=== PATIENT | female | born 1975 | race Hispanic/Latino ===

== ENCOUNTER 2021-12-04 18:36 | Emergency (ER) | payer MEDICAID, OTHER ==
[~2021-12-04] VITALS: Ht 165.1 cm; Wt 86.2 kg
[2021-12-04] MEDS ORDERED: DEXAMETHASONE 4 MG TAB PO SCH (19:00)
[2021-12-04] MEDS ORDERED: FAMOTIDINE 20MG VIAL IV ONE (19:00)
[2021-12-04 19:13] LABS: BASOPHILS % (AUTO) 0.4 % (0.0-5.0); EOSINOPHILS % (AUTO) 1.6 % (0.0-8.0); LYMPHOCYTES % (AUTO) 28.5 % (21.0-51.0); MEAN CORPUSCULAR HEMOGLOBIN 30.6 pg (27.0-33.0); MEAN CORPUSCULAR HGB CONC 33.2 g/dL (32.0-36.0); MEAN CORPUSCULAR VOLUME 92.3 fL (79-99); MONOCYTES % (AUTO) 7.9 % (3.0-13.0); NEUTROPHILS % (AUTO) 61.3 % (40.0-77.0); PLATELET COUNT (AUTO) 267 K/uL (130-400); RED BLOOD CELL COUNT(AUTO) 4.44 MIL/uL (4.00-5.50); RED CELL DISTRIBUTION WIDTH 13.2 % (11.0-15.5); WHITE BLOOD COUNT (AUTO) 6.9 K/uL (4.8-10.8)
[2021-12-04 19:54] LABS: ALBUMIN 4.1 g/dL (3.5-5.0); POTASSIUM 3.5 mmol/L (3.5-5.1)
[2021-12-04 20:20] LABS: APPEARANCE,URINE Cloudy (CLEAR); BILIRUBIN,URINE Negative (NEGATIVE); COLOR,URINE Yellow (YELLOW); GLUCOSE, URINE (UA) Negative (NEGATIVE); KETONES,URINE Trace mg/dL (NEGATIVE); LEUKOCYTE ESTERASE ,URINE Trace (NEGATIVE); NITRATE,URINE Positive (NEGATIVE); OCCULT BLOOD,URINE Negative (NEGATIVE); PH,URINE 6.5 (5.0-8.0); PROTEIN,URINE Negative (NEGATIVE)
[2021-12-04 20:30] LABS: BACTERIA,URINE Moderate /HPF (None Seen); MUCUS,URINE Few LPF (None Seen); SQUAMOUS EPITHELIAL CELL,UR Few /HPF (0-2)
[2021-12-04] MEDS ORDERED: PRED20TA3 PO ×2 (20:37→20:59)
[2021-12-04] MEDS ORDERED: FAMC500T8 PO (20:37)
[2021-12-04] MEDS ORDERED: FAMO-136 PO (20:37)
[2021-12-04] MEDS ORDERED: CEPH500B PO (20:37)
[2021-12-04 20:40] LABS: CREATININE 0.6 mg/dL (0.5-1.5)
[2021-12-04] MEDS ORDERED: CEFTRIAXONE 1G VIAL IVP ONE (21:00)
[2021-12-04 21:23] VITALS: BP 118/84
== END 2021-12-04 21:27 | disposition home or self-care (01) ==
LOC: EDH 18:36
DX: G51.0 Bell's palsy (principal); N39.0 Urinary tract infection, site not specified; E66.9 Obesity, unspecified; Z20.822 Contact with and (suspected) exposure to COVID-19; Z90.49 Acquired absence of other specified parts of digestive tract; Z79.899 Other long term (current) drug therapy; Z98.890 Other specified postprocedural states
CPT/HCPCS: 36415; 70450; 71045; 80053; 81001; 81025; 83605; 84484; 85025; 87077; 87088; 87186; 87635; 87804 ×2; 96374; 96375; 99285; C9803; J0696; J8540; S0028; J3490

== ENCOUNTER → 2023-06-27 | Outpatient (CLI) | payer MEDICAID ==
[~2023-06-27] MED LIST: CEPH500B PO; FAMC500T8 PO; FAMO-136 PO; PRED20TA3 PO
== END | disposition home or self-care (01) ==
LOC: RAH 10:53
PROVIDERS: ATTEND Family Medicine
DX: E04.1 Nontoxic single thyroid nodule (principal); E04.9 Nontoxic goiter, unspecified; R13.10 Dysphagia, unspecified; M62.89 Other specified disorders of muscle; R20.2 Paresthesia of skin
CPT/HCPCS: 76536

== ENCOUNTER 2025-06-12 19:43 | Emergency (ER) | payer SELFPAY ==
[~2025-06-12] VITALS: Ht 165.1 cm; Wt 96.2 kg
[2025-06-12 19:46] VITALS: BP 136/82; PULSE 87; RESP 20; TEMP 98.3
--- NOTE | 2025-06-12 19:53 | ERN ---
ED Note History of Present Illness Stated Complaint: C/O CP, JAW PAIN, LEFT SHOULDER PAIN, LT ARM WEAKN Chief Complaint: Chest Pain Time Seen by MD: 19:47 Dictation: IS A 49-YEAR-OLD FEMALE COMING IN TODAY WITH COMPLAINTS OF A SUDDEN ONSET OF CHEST PAIN PRESSURE THAT IS CAUSING JAW PAIN LEFT SHOULDER PAIN AND LEFT ARM PAIN WITH WEAKNESS. SHE STATES ONSET WAS APPROXIMATELY 1600 HOURS TODAY, STATES SHE WAS WITH HER MOTHER AT A PHYSICIAN'S OFFICE WHEN THE ONSET OCCURRED. NEVER HAD THIS BEFORE. 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 SHE IS UNAWARE OF ANY DIABETES HYPERTENSION CHOLESTEROL ETC. BECAUSE SHE DOES NOT SEE DOCTORS. Allergies: Coded Allergies: No Known Allergies (Unverified Allergy, Unknown, 12/04/21) Home Meds Active Scripts Prednisone (Prednisone) 20 Mg Tablet, 20 MG PO DAILY PRN for as directed, #30 TAB Prov:TOMER WOODALL 12/04/21 Cephalexin Monohydrate (Keflex) 500 Mg Cap, 500 MG PO TID for 7 Days, #21 CAP Prov:TOMER WOODALL 12/04/21 Famotidine (Pepcid) 20 Mg Tablet, 20 MG PO BID, #60 TAB Prov:WOODALLCESAR RuizO PA 12/04/21 Famciclovir (Famciclovir) 500 Mg Tablet, 500 MG PO TID for 7 Days, #21 TAB Prov:WOODALL,TOMER PA 12/04/21 Past Medical History Past Medical History: No Pertinent History Additional Past Medical Hx: Obesity Surgical History: Appendectomy, Cholecystectomy Family History: Negative Social History: Negative History: Not Applicable : 6 Para: 5 Aborts: 1 RN Note Reviewed/Agreed w/PFSH: Yes Review of System Dictation CONSTITUTIONAL: NEGATIVE EXCEPT FOR HPI HEAD/FACE: NEGATIVE EXCEPT FOR HPI EENT: NEGATIVE EXCEPT FOR HPI RESPIRATORY: NEGATIVE EXCEPT FOR HPI CHEST PAIN PRESSURE THAT RADIATES TO JAW LEFT SHOULDER AND LEFT ARM GASTROINTESTINAL/ABDOMINAL: NEGATIVE EXCEPT FOR HPI GENITOURINARY: NEGATIVE EXCEPT FOR HPI MUSCULOSKELETAL: NEGATIVE EXCEPT FOR HPI INTEGUMENTARY: NEGATIVE EXCEPT FOR HPI NEUROLOGICAL/PSYCH: NEGATIVE EXCEPT FOR HPI HEMATOLOGIC/LYMPHATIC: NEGATIVE EXCEPT FOR HPI ALL SYSTEMS NEGATIVE, EXCEPT NOTED ABOVE. 13 POINT REVIEW OF SYSTEMS ASSESSED AND ALL NEGATIVE EXCEPT FOR ABOVE. Initial Vital Sign VS Vital Signs Date Time Temp Pulse Resp B/P (MAP) Pulse Ox O2 Delivery O2 Flow Rate FiO2 06/12/25 19:46 98.2 87 20 136/82 99 Room Air Physical Exam Dictation NORMAL EXA VITAL SIGNS REVIEWED GENERAL APPEARANCE: ALERT, ORIENTED X 3, MODERATE ACUTE DISTRESS, WELL DEVELOPED, NOURISHED. HEAD AND FACE: NON-TRAUMATIC. EYES: PERRL, PINK CONJUNCTIVAS, EYELID NO TRAUMA, ANTERIOR CHAMBER WITH ARCUS SENILIS. EARS: PINNAS INTACT AND NO SIGNS OF TRAUMA OR ERYTHEMA EAR CANALS CLEAR AND NO DISCHARGE TM NO ERYTHEMA NOSE: NO DISCHARGE, NO BLEEDING. OROPHARYNX: MOUTH NORMAL, TONGUE PINK, PHARYNX CLEAR,NO ERYTHEMA, TONSILS NO EXUDATES, NO ABSCESSES NOTED, MUCOUS MEMBRANE MOIST NECK: SUPPLE, NON-TENDER, NO THYROMEGALY, NO MASSES, NO JVD, NO BRUITS BREAST:DEFERRED CHEST:NO TENDERNESS, NO CREPITUS, NO PARADOXICAL MOVEMENT, NO RETRACTIONS LUNGS:CLEAR, WELL-VENTILATED, SYMMETRIC, NO RALES, NO WHEEZING, NO RHONCHI, NO STRIDOR, GOOD BREATH SOUNDS BILATERALLY HEART: REGULAR RATE, REGULAR RHYTHM, NO MURMUR, NO GALLOPS VASCULAR: NO PERIPHERAL EDEMA, ABDOMEN: SOFT, POSITIVE BOWEL SOUNDS, NONDISTENDED, NO GUARDING, NONTENDER, NO REBOUND, NO MASSES NO HEPATOMEGALY, NO SPLENOMEGALY, NO CAMPBELL'S SIGN, NO HERNIAS. RECTAL: DEFERRED GENITAL: DEFERRED NEUROLOGICAL: NORMAL SPEECH, MOTOR FUNCTION INTACT, SENSORY FUNCTION INTACT NIH IS 0 MOVING ALL EXTREMITIES 5/5 BILATERALLY MUSCULOSKELETAL: NECK NONTENDER, FULL RANGE OF MOTION, BACK NONTENDER, FULL RANGE OF MOTION, EXTREMITIES: NONTENDER, FULL RANGE OF MOTION SKIN: COLOR PINK, DRY, NO TURGOR, NO RASH, NO LACERATIONS, NO ABRASIONS, NO CONTUSIONS. LYMPHATIC: DEFERRED Results (Laboratory/Radiology) Laboratory/Radiology Laboratory Tests Test 06/12/25 19:49 06/12/25 22:45 White Blood Count 8.8 K/uL (4.8-10.8) Red Blood Count 4.48 MIL/uL (4.00-5.50) Hemoglobin 13.5 g/dL (12.0-16.0) Hematocrit 40.6 % (36-48) Mean Corpuscular Volume 90.6 fL (79-99) Mean Corpuscular Hemoglobin 30.1 pg (27.0-33.0) Mean Corpuscular Hemoglobin Concent 33.3 g/dL (32.0-36.0) Red Cell Distribution Width 13.0 % (11.0-15.5) Platelet Count 336 K/uL (130-400) Mean Platelet Volume 11.5 fL (7.5-10.5) H Immature Granulocyte % (Auto) 0.3 % (0-1) Neutrophils (%) (Auto) 64.2 % (40.0-77.0) Lymphocytes (%) (Auto) 25.4 % (21.0-51.0) Monocytes (%) (Auto) 8.0 % (3.0-13.0) Eosinophils (%) (Auto) 1.6 % (0.0-8.0) Basophils (%) (Auto) 0.5 % (0.0-5.0) Neutrophils # (Auto) 5.7 K/uL (1.8-7.7) Lymphocytes # (Auto) 2.2 K/uL (1.0-4.8) Monocytes # (Auto) 0.7 K/uL (0.1-1.0) Eosinophils # (Auto) 0.14 K/uL (0.00-0.70) Basophils # (Auto) 0.04 K/uL (0.00-0.20) Absolute Immature Granulocyte (auto 0.03 K/uL (0-1) Nucleated Red Blood Cells 0.0 % (0.0-0.19) Sodium Level 140 mmol/L (136-145) Potassium Level 3.4 mmol/L (3.5-5.1) L Chloride Level 102 mmol/L (101-111) Carbon Dioxide Level 31 mmol/L (21-32) Blood Urea Nitrogen 13 mg/dL (7-18) Creatinine 0.9 mg/dL (0.5-1.0) Glomerular Filtration Rate Calc 78 mL/min (>90) Random Glucose 103 mg/dL (70-105) Total Calcium 8.8 mg/dL (8.5-10.1) Magnesium Level 2.30 mg/dL (1.80-2.40) Troponin I High Sensitivity < 4 ng/L (4-50) L 5 ng/L (4-50) REASON: CHEST PAIN ORDERING PHYSICIAN: GINNA LI PROCEDURE: CXR1VW - CHEST 1VW EXAM: CR Chest, single view. CLINICAL HISTORY: Chest pain. COMPARISON: None provided. FINDINGS: The lungs show no infiltrate or other acute findings. No pleural effusion or pneumothorax. The cardiomediastinal silhouette is within normal limits. No acute osseous abnormality. IMPRESSION: No acute cardiopulmonary pathology is evident. /[place] Labs Reviewed?: Yes EKG Comment: 1944, EKG NORMAL SINUS RHYTHM/HEART RATE 95/AXIS NORMAL/NO ECTOPY ED Course ED Course Orders Procedure Category Date Status Time Chest 1vw RAD 06/12/25 Resulted 19:49 Nitroglycerin 0.4mg PHA 06/12/25 Complete Sl Tab (Nitrostat) 20:00 Aspirin 325mg Tab PHA 06/12/25 Complete (Aspirin 325mg Tab) 20:00 12 Lead Ekg Tracing- EKG 06/12/25 Complete Technical 19:45 Cbc With Differential LAB 06/12/25 Complete 20:46 Magnesium LAB 06/12/25 Complete 20:46 Troponin I High LAB 06/12/25 Complete Sensitivity 20:46 Basic Metabolic Panel LAB 06/12/25 Complete 20:46 Troponin I High LAB 06/12/25 Complete Sensitivity 22:05 Current Medications Medications (Trade) Dose Ordered Sig/Crystal Route PRN Reason Start Time Stop Time Status Last Admin Dose Admin Aspirin (Aspirin 325mg Tab) 325 mg ONCE ONCE PO 06/12/25 20:00 06/12/25 19:55 DC Nitroglycerin (Nitrostat) 0.4 mg Q5M PRN SL CHEST PAIN 06/12/25 20:00 06/12/25 19:55 DC Vital Signs Date Time Temp Pulse Resp B/P (MAP) Pulse Ox O2 Delivery O2 Flow Rate FiO2 06/12/25 19:46 98.2 87 20 136/82 99 Room Air HEART Score Response (Comments) Value History: High suspicion (+2) 2 EKG: Normal 0 Age: 45-65yrs (+1) 1 Risk Factors: No known risk factors (0) 0 Initial Troponin: Normal limit (0) 0 Total 3 Medical Decision Making MDM The patient is a 49-year-old female who presents to the emergency department with complaints of chest pressure that radiates to the jaw and to the left shoulder onset today at 4:00 p.m.. CBC showed no leukocytosis, no anemia, chemistry showed mild hypokalemia, negative troponin x2, EKG showed sinus rhythm. Patient reports feeling better. Patient for no risk factors, she is not diabetic no history of CAD denies any smoking or drug use. Patient with low risk for cardiac etiology. Labs and imaging discussed with the patient who agrees to follow up with primary doctor and return if symptoms worsen. On physical exam patient is in no acute distress, nontoxic appearance, neurologically intact., stable vital signs. Differential diagnosis: ACS, gastritis, pneumonia, pneumothorax Need for hospitalization: Patient does not meet criteria for hospitalization. There are no social concerns with this patient. DX & DISP Disposition: Discharge Departure Impression: Primary Impression: Chest pain with low risk for cardiac etiology Condition: Stable Additional Instructions: Your labs were unremarkable. Please follow up with your primary doctor in 1-2 days. If your symptoms worsen please return to ER. FOLLOW-UP WITH PRIMARY CARE PROVIDER IN 1 TO 2 DAYS. TAKE MEDICATIONS DIRECTED HERE IN THE EMERGENCY ROOM. OKAY TO CONTINUE HOME MEDICATIONS UNLESS OTHERWISE DISCUSSED DURING YOUR VISIT IN THE EMERGENCY ROOM TODAY. RETURN TO YOUR NEAREST EMERGENCY ROOM IF SYMPTOMS WORSEN OR IF THERE IS NO IMPROVEMENT. C ALL 911 IF YOU NEED IMMEDIATE ASSISTANCE. TAKE TYLENOL [id number] NEEDED AND IF NO CONTRAINDICATIONS ARE PRESENT. INCREASE ORAL HYDRATION. A WOUND CULTURE OR URINE CULTURE WAS ORDERED HERE IN THE EMERGENCY ROOM DEPARTMENT PLEASE FOLLOW-UP WITH PRIMARY CARE PROVIDER AND ADVISE THEM TO GET REPEAT PORTS FROM OUR FACILITY. IF YOU HAD ANY KNE WRAP/SPLINTS THAT WERE APPLIED HERE, PLEASE DO NOT REMOVE THEM UNTIL YOU SEE YOUR PRIMARY CARE OR SPECIALTY. Time of Disposition: 23:40 I have reviewed the case, and I agree with, Diagnosis and Plan GINNA LIP Jun 12, 2025 19:53 BALDEMAR WHITE Jun 12, 2025 23:41
[2025-06-12] MEDS ORDERED: NITROGLYCERIN 0.4 MG SL TAB SL PRN (20:00)
[2025-06-12] MEDS ORDERED: ASPIRIN 325MG TAB PO ONE (20:00)
--- NOTE | 2025-06-12 20:17 | EKG ---
[facility] Test Date: 2025-06-12 Test Time: 19:45:00 Pat Name: ERVIN ASKEW Department: ED Room: Gender: F Ginseng Farmer: [id number] : 1975 Requested By: BRANDON CABRAL Order Number: [id number] Reading MD: Dayton Armstrong Measurements Intervals [place] Rate: 95 P: 29 TN: 164 QRS: 66 QRSD: 84 T: 66 QT: 312 QTc: 392 Interpretive Statements Sinus rhythm No previous ECG available for comparison Electronically Signed On 06-13-2025 19:04:39 SQL PROGRAMMER ANALYST by Dayton Armstrong Please click the below link to view image of tracing.
[2025-06-12 20:57] LABS: IMMATURE GRANULOCYTE ABSOLUTE 0.03 K/uL (0-1); NUCLEATED RED BLOOD CELLS 0.0 % (0.0-0.19); PLATELET COUNT (AUTO) 336 K/uL (130-400); RED BLOOD CELL COUNT(AUTO) 4.48 MIL/uL (4.00-5.50); RED CELL DISTRIBUTION WIDTH 13.0 % (11.0-15.5); WHITE BLOOD COUNT (AUTO) 8.8 K/uL (4.8-10.8)
[2025-06-12 21:04] LABS: CREATININE 0.9 mg/dL (0.5-1.0); GLOMERULAR FILTR. RATE CALC 78.0 mL/min (>90); GLUCOSE,RANDOM 103.0 mg/dL (70-105); SODIUM SERUM 140.0 mmol/L (136-145); UREA NITROGEN, BLOOD 13.0 mg/dL (7-18)
--- NOTE | 2025-06-12 21:31 | HMCIMG ---
EXAM: CR Chest, single view. CLINICAL HISTORY: Chest pain. COMPARISON: None provided. FINDINGS: The lungs show no infiltrate or other acute findings. No pleural effusion or pneumothorax. The cardiomediastinal silhouette is within normal limits. No acute osseous abnormality. IMPRESSION: No acute cardiopulmonary pathology is evident. /[place]
== END 2025-06-12 23:47 | disposition home or self-care (01) ==
LOC: EDH 19:43
DX: R07.89 Other chest pain (principal); R68.84 Jaw pain; M25.512 Pain in left shoulder; R53.1 Weakness; E66.9 Obesity, unspecified; Z79.624 Long term (current) use of inhibitors of nucleotide synthesis; Z90.49 Acquired absence of other specified parts of digestive tract
CPT/HCPCS: 36415; 71045; 80048; 83735; 84484; 85025; 93005; 99285